=== PATIENT | female | born 1980 | race Caucasian/White ===

== ENCOUNTER 2020-11-12 13:07 | Emergency (ER) | payer OTHER, SELFPAY ==
[2020-11-12 13:25] VITALS: BP 119/80; PULSE 110; RESP 20; TEMP 37.1; O2SAT 100
--- NOTE | 2020-11-12 13:32 | ED.URI ---
HPI - URI/Sore Throat General Chief Complaint: Upper Respiratory Infection Stated Complaint: Sore Throat and Ear pain Time Seen by Provider: 11/12/20 13:52 Source: patient and RN notes reviewed Mode of arrival: ambulatory Limitations: no limitations History of Present Illness HPI Narrative: 40-year-old female presents concern for sore throat, left ear pain, body aches. Reports symptoms started 7 days ago with diarrhea. Reports the diarrhea has resolved, however she still has body aches, sore throat, ear pain. Denies intervention. Denies sick contacts. MD elicited complaint: sore throat Related Data Home Medications Medication Instructions Recorded Confirmed albuterol sulfate 2 puff INHALATION QID 11/12/20 11/12/20 Allergies Allergy/AdvReac Type Severity Reaction Status Date / Time No Known Allergies Allergy Verified 11/12/20 13:35 Review of Systems Review of Systems: CONSTITUTIONAL: Denies malaise, chills, sweats, or fever. EYES: Denies visual changes, redness, or discharge. ENT: Denies rhinorrhea, congestion, sinus pain. Reports otalgia and sore throat. CARDIOVASCULAR: Denies chest pain, palpitations, or edema. RESPIRATORY: Denies cough or dyspnea. GASTROINTESTINAL: Denies abdominal pain, nausea, vomiting, diarrhea SKIN: Denies rash or itching. MUSCULOSKELETAL: Reports myalgia. NEUROLOGIC: Denies headache. All systems reviewed & are unremarkable except as noted in HPI and below PMFSH Comments At time of signature, agree with nursing past medical, surgical, social and family history. There is no relevant family history pertinent to the presenting complaint Exam Narrative: GENERAL: Well-appearing, well-nourished, and in no acute distress. HEAD: Normocephalic EYES: PERRLA, conjunctivae clear ENT: Nares clear. Mucous membranes moist. TM pearly delarosa with dull light reflex bilaterally; no tragal tenderness. Oropharynx erythematous without lesions. Tonsils not enlarged and without exudate, no drooling, no hoarseness, no trismus, uvula midline. NECK: Supple. No lymphadenopathy CHEST: Clear to auscultation, breath sounds equal. No wheezing, rhonchi, rales, or stridor. No respiratory distress, speaks in full sentences. HEART: Regular rate and rhythm. No murmur heard. SKIN: Warm, dry, no rash. NEURO: Alert and oriented x3. PSYCH: Normal mood and affect Course Course Emergency Course: Patient is aware of diagnosis, understands and agrees to treatment plan. Anticipatory guidance given. Patient agrees to follow-up as directed and is aware of reasons to seek care at the emergency department. Portions of this record may have been created with voice recognition software Vital Signs Vital signs: Vital Signs Temperature 98.7 F 11/12/20 13:25 Pulse Rate 110 H 11/12/20 13:25 Respiratory Rate 20 11/12/20 13:25 Blood Pressure 119/80 11/12/20 13:25 Pulse Oximetry 100 11/12/20 13:25 Temperature 98.7 F 11/12/20 13:25 Pulse Rate 110 H 11/12/20 13:25 Respiratory Rate 20 11/12/20 13:25 Blood Pressure 119/80 11/12/20 13:25 Pulse Oximetry 100 11/12/20 13:25 Reviewed. MDM - URI/Sore Throat MDM Narrative Medical decision making narrative: Differential diagnosis considered: Leonard virus, strep pharyngitis, allergic rhinitis, upper respiratory tract infection, sinusitis, rhinosinusitis, nasopharyngitis. viral pharyngitis, otitis media, otitis externa, pneumonia, bronchitis, viral cough syndrome, viral syndrome, and influenza. Exam findings show no acute concerns or changes; patient is non-toxic appearing and is in no distress. Patient is appropriate for outpatient treatment and follow-up. Lab Data Attestation: I reviewed the patient's lab results. Critical Care Time Critical Care Time Critical Care Time: No Discharge Plan Discharge Clinical Impression: Upper respiratory infection Qualifiers: URI type: unspecified viral URI Qualified Code(s): J06.9 - Acute upper respiratory infection, unspeci
[2020-11-14 13:58] LABS: SARS-CoV-2 RNA PCR Negative
== END 2020-11-12 14:07 | disposition home or self-care (01) ==
PROVIDERS: Emergency Provider Nurse Practitioner
DX: J06.9 Acute upper respiratory infection, unspecified (principal); Z20.822 Contact with and (suspected) exposure to COVID-19; J45.909 Unspecified asthma, uncomplicated
CPT/HCPCS: 87081; 87426; 87880; 99213; C9803; G0463; U0003; U0005

== ENCOUNTER 2022-03-21 09:17 | Emergency (ER) | payer OTHER, SELFPAY ==
[2022-03-21 09:26] VITALS: BP 129/72; PULSE 88; RESP 16; TEMP 36.4; O2SAT 99
--- NOTE | 2022-03-21 11:07 | ED.GENADULT ---
HPI - General Adult General Chief complaint: Ear Stated complaint: covid positive/ear pain Time Seen by Provider: 03/21/22 11:09 Source: patient, RN notes reviewed and old records reviewed Mode of arrival: ambulatory Limitations: no limitations History of Present Illness HPI narrative: 41-year-old female who presents to [facility] for evaluation of ear pain and chest congestion. Patient is COVID positive had test thru [facility] today documenting verification of her home test results. Patient reports that she has had left ear pain which started on Saturday and mucous in her chest since yesterday. Patient reports that she has taken Aleve acold and sinus and aslos ibuprofen. Patient admits to to myalgias and some cough, denies any acute fevers. MD complaint: left ear pain, chest congestion, is positive for COVID. Onset (ago): day(s) (day 2) Severity scale (1-10): 6 Treatments prior to arrival: other (Aleve cold and sinsus, ibuprofen) Related Data Allergies Allergy/AdvReac Type Severity Reaction Status Date / Time No Known Allergies Allergy Verified 03/21/22 10:49 Review of Systems Review of Systems: CONSTITUTIONAL:Reports malaise, chills, sweats, low grade fever. EYES: Denies visual changes, redness, or discharge. ENT: Reports rhinorrhea, congestion, sinus pain, left otalgia no sore throat. CARDIOVASCULAR: Denies chest pain, palpitations, or edema. RESPIRATORY: Reports cough.? Denies dyspnea. GASTROINTESTINAL: Denies abdominal pain, nausea, vomiting, diarrhea SKIN: Denies rash or itching. MUSCULOSKELETAL: Denies myalgia. NEUROLOGIC: Denies headache. All systems reviewed & are unremarkable except as noted in HPI and below PMFSH Social History Social History (Updated 03/22/22 @ 15:13 by Amita Chen NP) Smoking packs per day: 0.5 Smoking cigarettes per day: 10.0 Smoking status: Current every day smoker Tobacco type: cigarettes Gender identity (if verbalized by the patient): Female Comments At time of signature, agree with nursing past medical, surgical, social and family history. There is no relevant family history pertinent to the presenting complaint Exam Narrative: GENERAL: Well-appearing, well-nourished, and in no acute distress. HEAD: Normocephalic EYES: PERRLA, conjunctivae clear ENT: Nares clear, turbinates edematous and erythematous, clear discharge. Mucous membranes moist.left TM red and bulging right TM pearly delarosa with dull light reflex; no tragal tenderness. Oropharynx erythematous without lesions. Tonsils not enlarged and without exudate, no drooling, no hoarseness, no trismus, uvula midline. NECK: Supple. No lymphadenopathy CHEST: Clear to auscultation, breath sounds equal. No wheezing, rhonchi, rales, or stridor. No respiratory distress, speaks in full sentences. SAO2 99% on room air. HEART: Regular rate and rhythm. No murmur heard. SKIN: Warm, dry, no rash. NEURO: Alert and oriented x3. PSYCH: Normal mood and affect Course Course Emergency Course: Patient is aware of diagnosis, understands and agrees to treatment plan.? Anticipatory guidance given.? Patient agrees to follow-up as directed and is aware of reasons to seek care at the emergency department. Portions of this record may have been created with voice recognition software Level of Care: Express Care Visit Vital Signs Vital signs: Vital Signs Temperature 36.4 C 03/21/22 09:26 Pulse Rate 88 03/21/22 09:26 Respiratory Rate 16 03/21/22 09:26 Blood Pressure 129/72 03/21/22 09:26 Pulse Oximetry 99 03/21/22 09:26 Oxygen Delivery Room Air 03/21/22 09:26 Temperature 36.4 C 03/21/22 09:26 Pulse Rate 88 03/21/22 09:26 Respiratory Rate 16 03/21/22 09:26 Blood Pressure 129/72 03/21/22 09:26 Pulse Oximetry 99 03/21/22 09:26 Oxygen Delivery Room Air 03/21/22 09:26 Reviewed Medical Decision Making Differential Diagnosis Differential Diagnosis: otiti
== END 2022-03-21 11:23 | disposition home or self-care (01) ==
PROVIDERS: Emergency Provider Registered Nurse; PCP Internal Medicine
DX: U07.1 COVID-19 (principal); H65.02 Acute serous otitis media, left ear; F17.210 Nicotine dependence, cigarettes, uncomplicated; J45.909 Unspecified asthma, uncomplicated
CPT/HCPCS: 99213; G0463